=== PATIENT | male | born 1945 | race Caucasian/White ===

== ENCOUNTER 2016-12-29 17:10 | Emergency (ER) | payer MEDICARE, MEDICAID ==
[2016-12-29 19:39] VITALS: BP 136/91
== END 2016-12-29 19:39 | disposition short-term general hospital (02) ==
LOC: ED 17:10
DX: I21.4 Non-ST elevation (NSTEMI) myocardial infarction (principal); I10 Essential (primary) hypertension; Z87.891 Personal history of nicotine dependence
CPT/HCPCS: J1644; J7030

== ENCOUNTER → 2016-12-29 | Outpatient (CLI) | payer MEDICARE ==
[~2016-12-29] VITALS: Ht 167.6 cm; Wt 69.1 kg
[~2016-12-29] MED LIST: ZYRTEC10 M3 PO
[2016-12-29 16:17] VITALS: BP 155/107
[2016-12-29 16:41] LABS: BASO # 0.1 (0.02-0.10); EOS # 0.2 (0.04-0.40); EOS % 1.6 % (0.0-4.0); HEMATOCRIT 49.5 % (42.0-52.0); HEMOGLOBIN 15.9 g/dL (13.5-18.0); LYMPH# 3.3 (1.50-4.00); MEAN CELL VOLUME 85 fl (78-100); MEAN CORPUSCULAR HEMOGLOBIN 27 pg (27-31); MEAN CORPUSCULAR HGB CONC 32 g/dL (33-37); MONO # 1.1 (0.20-0.80); NEU # 6.8 (1.40-6.50); PLATELET COUNT 315 K/mm3 (130-400); RED BLOOD COUNT 5.83 M/mm3 (4.20-5.60); RED CELL DISTRIBUTION WIDTH 14.9 % (11.5-14.5); WHITE BLOOD COUNT 11.4 K/mm3 (4.8-10.8)
[2016-12-29 16:52] LABS: BUN/CREATININE RATIO 19.3 (6.0-26.0); CALCIUM 10.6 mg/dL (8.4-10.2); POTASSIUM 4.7 mmol/L (3.6-5.0); TOTAL BILIRUBIN 0.5 mg/dL (0.2-1.3); TOTAL PROTEIN 7.7 g/dL (6.3-8.2)
[2016-12-29 16:55] LABS: TROPONIN-I 1.16 ng/mL (0.00-0.06)
[2016-12-29 17:09] LABS: CKMB ISOENZYME 15.3 ng/mL (0.6-3.5)
--- NOTE | 2016-12-29 17:12 | NUR ---
[facility] visits withpatient re lab and EKGm results, plan to transfer to other facility for cardiac care
--- NOTE | 2016-12-29 17:16 | NUR ---
transfer to ED for continuum of care
[2016-12-29 17:39] LABS: D-DIMER 0.76 mg/L FEU (0.15-0.50)
[2016-12-29 18:08] LABS: PROTHROMBIN TIME 9.2 SECONDS (9.0-12.0)
== END ==
LOC: LAB 16:11
PROVIDERS: Family Medicine; Nurse Practitioner Family
DX: R07.89 Other chest pain (principal); M79.602 Pain in left arm

== ENCOUNTER 2017-01-21 06:34 | Emergency (ER) | payer MEDICARE, MEDICAID ==
[~2017-01-21] VITALS: Ht 165.1 cm; Wt 65.9 kg
[2017-01-21] MEDS ORDERED: GOOD SENSE ASPI81 M1 PO (06:54)
[2017-01-21] MEDS ORDERED: FLOMAX0.4 MG PO (06:55)
[2017-01-21] MEDS ORDERED: LOPRESSOR 225 MG/TAB PO (06:55)
[2017-01-21] MEDS ORDERED: LIPITOR 10M10 MG/TAB PO (06:55)
[2017-01-21] MEDS ORDERED: RT ALBUTEROL CC18 GM IH (06:56)
[2017-01-21] MEDS ORDERED: ACETAMINOPHEN325 M3 PO (06:56)
[2017-01-21] MEDS ORDERED: ONE-A-DAY MEN'S1 TAB PO (06:57)
[2017-01-21] MEDS ORDERED: ROXICODONE 55 MG/TAB PO (06:57)
[2017-01-21] MEDS ORDERED: GLUCOSAMINE CHO1 TAB PO (06:57)
[2017-01-21] MEDS ORDERED: ACID REDUCER 1150 MG PO (06:58)
[2017-01-21 07:47] LABS: URINE APPEARANCE CLOUDY; URINE BILIRUBIN NEGATIVE (NEGATIVE); URINE BLOOD 250 ery/uL (NEGATIVE); URINE COLOR YELLOW; URINE GLUCOSE NEGATIVE (NEGATIVE); URINE KETONE NEGATIVE (NEGATIVE); URINE LEUKOCYTE ESTERASE 2+ (NEGATIVE); URINE NITRATE NEGATIVE (NEGATIVE); URINE PROTEIN(semi-quant) 3+ mg/dL (NEGATIVE); URINE UROBILINOGEN NORMAL (NORMAL)
[2017-01-21 08:59] LABS: HEMATOCRIT 31.4 % (42.0-52.0); HEMOGLOBIN 9.6 g/dL (13.5-18.0); MEAN CELL VOLUME 89 fl (78-100); MEAN CORPUSCULAR HEMOGLOBIN 27 pg (27-31); MEAN CORPUSCULAR HGB CONC 31 g/dL (33-37); MEAN PLATELET VOLUME 8.4 fl (7.4-10.4); RED BLOOD COUNT 3.55 M/mm3 (4.20-5.60); RED CELL DISTRIBUTION WIDTH 17.1 % (11.5-14.5); WHITE BLOOD COUNT 18.5 K/mm3 (4.8-10.8)
[2017-01-21 09:11] LABS: PLATELET COUNT 819 K/mm3 (130-400)
[2017-01-21 09:14] LABS: LYMPHOCYTE 9 % (20-51); MONOCYTE 4 % (3-10); NEUTROPHILS 86 % (42-75)
[2017-01-21 09:39] LABS: BUN/CREATININE RATIO 13.7 (6.0-26.0); CALCIUM 9.1 mg/dL (8.4-10.2); POTASSIUM 4.4 mmol/L (3.6-5.0)
[2017-01-21 09:48] LABS: URINE APPEARANCE CLOUDY; URINE BILIRUBIN NEGATIVE (NEGATIVE); URINE COLOR YELLOW; URINE GLUCOSE NEGATIVE (NEGATIVE); URINE KETONE NEGATIVE (NEGATIVE); URINE NITRATE NEGATIVE (NEGATIVE); URINE PROTEIN(semi-quant) 3+ mg/dL (NEGATIVE); URINE UROBILINOGEN NORMAL (NORMAL)
[2017-01-21 09:49] LABS: URINE BLOOD 250 ery/uL (NEGATIVE); URINE LEUKOCYTE ESTERASE 2+ (NEGATIVE); URINE WBC >50 /hpf (0-3)
[2017-01-21] MEDS ORDERED: LEVAQUIN 750MG750 M1 PO (12:07)
[2017-01-21 12:14] VITALS: BP 134/72
== END 2017-01-21 12:23 | disposition home or self-care (01) ==
LOC: ED 06:34
PROVIDERS: Nurse Practitioner Family
DX: T83.098A Other mechanical complication of other urinary catheter, initial encounter (principal); N39.0 Urinary tract infection, site not specified; Z95.1 Presence of aortocoronary bypass graft; J90 Pleural effusion, not elsewhere classified; I25.2 Old myocardial infarction; I10 Essential (primary) hypertension; R33.9 Retention of urine, unspecified; Z87.891 Personal history of nicotine dependence
CPT/HCPCS: A4322; A4358; Q9967

== ENCOUNTER 2017-01-24 15:05 | Outpatient (RCR) | payer MEDICARE, MEDICAID ==
[~2017-01-24 15:05] MED LIST changes: +ACETAMINOPHEN325 M3 PO; +ACID REDUCER 1150 MG PO; +FLOMAX0.4 MG PO; +GLUCOSAMINE CHO1 TAB PO; +GOOD SENSE ASPI81 M1 PO; +LEVAQUIN 750MG750 M1 PO; +LIPITOR 10M10 MG/TAB PO; +LOPRESSOR 225 MG/TAB PO; +ONE-A-DAY MEN'S1 TAB PO; +ROXICODONE 55 MG/TAB PO; +RT ALBUTEROL CC18 GM IH
[2017-03-29] MEDS ORDERED: LOPRESSOR 225 MG/TAB PO (09:43)
[2017-03-29] MEDS ORDERED: ZITHROMAX Z PA250 MG PO (11:32)
[2017-03-29] MEDS ORDERED: MUCINEX 60600 MG/TA1 PO (11:32)
[2017-03-29] MEDS ORDERED: TESSALON PERLE100 M1 PO (11:32)
== END 2017-04-24 | disposition home or self-care (01) ==
LOC: CARDREHAB
DX: Z48.812 Encounter for surgical aftercare following surgery on the circulatory system (principal); Z95.1 Presence of aortocoronary bypass graft; I25.2 Old myocardial infarction

== ENCOUNTER → 2017-01-28 | Outpatient (CLI) | payer MEDICARE, MEDICAID ==
[2017-01-21 12:14] VITALS: BP 134/72
[2017-01-28 12:15] LABS: HEMATOCRIT 36.8 % (42.0-52.0); HEMOGLOBIN 11.3 g/dL (13.5-18.0); MEAN CELL VOLUME 86 fl (78-100); MEAN CORPUSCULAR HEMOGLOBIN 26 pg (27-31); MEAN CORPUSCULAR HGB CONC 31 g/dL (33-37); RED CELL DISTRIBUTION WIDTH 16.1 % (11.5-14.5); WHITE BLOOD COUNT 9.7 K/mm3 (4.8-10.8)
[2017-01-28 12:57] LABS: URINE APPEARANCE CLEAR; URINE BILIRUBIN NEGATIVE (NEGATIVE); URINE BLOOD NEGATIVE (NEGATIVE); URINE COLOR YELLOW; URINE GLUCOSE NEGATIVE (NEGATIVE); URINE KETONE NEGATIVE (NEGATIVE); URINE LEUKOCYTE ESTERASE 1+ (NEGATIVE); URINE NITRATE NEGATIVE (NEGATIVE); URINE PROTEIN(semi-quant) 1+ mg/dL (NEGATIVE); URINE UROBILINOGEN NORMAL (NORMAL)
[2017-01-28 12:58] LABS: URINE WBC 16-30 /hpf (0-3)
[2017-01-28 12:59] LABS: URINE MUCUS PRESENT (NOT PRESENT)
[2017-01-28 13:01] LABS: PLATELET COUNT 819 K/mm3 (130-400)
[2017-01-28 13:18] LABS: ALBUMIN 3.9 g/dL (3.5-5.0); BUN/CREATININE RATIO 17.2 (6.0-26.0); CALCIUM 10.4 mg/dL (8.4-10.2); POTASSIUM 4.7 mmol/L (3.6-5.0); TOTAL BILIRUBIN 0.5 mg/dL (0.2-1.3); TOTAL PROTEIN 7.4 g/dL (6.3-8.2)
[2017-01-28 13:19] LABS: LYMPHOCYTE 24 % (20-51); MONOCYTE 7 % (3-10); NEUTROPHILS 65 % (42-75)
== END ==
LOC: RAD 11:50
PROVIDERS: Physician Assistant
DX: R06.02 Shortness of breath (principal); N39.0 Urinary tract infection, site not specified; Z88.0 Allergy status to penicillin; Z95.1 Presence of aortocoronary bypass graft

== ENCOUNTER 2017-03-29 09:34 | Emergency (ER) | payer MEDICARE, MEDICAID ==
[~2017-03-29] VITALS: Ht 167.6 cm; Wt 65.5 kg
[2017-03-29] MEDS ORDERED: LOPRESSOR 225 MG/TAB PO (09:43)
[2017-03-29 10:39] LABS: STREP SCREEN NEGATIVE (NEGATIVE)
[2017-03-29 10:40] LABS: ALBUMIN 3.7 g/dL (3.5-5.0); BUN/CREATININE RATIO 10.8 (6.0-26.0); CALCIUM 8.7 mg/dL (8.4-10.2); HEMATOCRIT 49.6 % (42.0-52.0); HEMOGLOBIN 14.9 g/dL (13.5-18.0); MEAN CELL VOLUME 82 fl (78-100); MEAN CORPUSCULAR HEMOGLOBIN 25 pg (27-31); MEAN CORPUSCULAR HGB CONC 30 g/dL (33-37); MEAN PLATELET VOLUME 9.4 fl (7.4-10.4); PLATELET COUNT 225 K/mm3 (130-400); POTASSIUM 4.3 mmol/L (3.6-5.0); RED BLOOD COUNT 6.06 M/mm3 (4.20-5.60); RED CELL DISTRIBUTION WIDTH 15.4 % (11.5-14.5); TOTAL BILIRUBIN 0.2 mg/dL (0.2-1.3); TOTAL PROTEIN 7.2 g/dL (6.3-8.2); WHITE BLOOD COUNT 6.2 K/mm3 (4.8-10.8)
[2017-03-29 10:50] LABS: BAND 7 % (0-10); LYMPHOCYTE 23 % (20-51); MONOCYTE 9 % (3-10); NEUTROPHILS 61 % (42-75)
[2017-03-29] MEDS ORDERED: ZITHROMAX Z PA250 MG PO (11:32)
[2017-03-29] MEDS ORDERED: MUCINEX 60600 MG/TA1 PO (11:32)
[2017-03-29] MEDS ORDERED: TESSALON PERLE100 M1 PO (11:32)
[2017-03-29 11:55] VITALS: BP 123/76
== END 2017-03-29 11:40 | disposition home or self-care (01) ==
LOC: ED 09:34
PROVIDERS: Physician Assistant
DX: J20.9 Acute bronchitis, unspecified (principal); J02.9 Acute pharyngitis, unspecified; I25.10 Atherosclerotic heart disease of native coronary artery without angina pectoris; Z95.1 Presence of aortocoronary bypass graft; Z87.891 Personal history of nicotine dependence; I12.9 Hypertensive chronic kidney disease with stage 1 through stage 4 chronic kidney disease, or unspecified chronic kidney disease; N18.9 Chronic kidney disease, unspecified; J45.909 Unspecified asthma, uncomplicated; Z79.82 Long term (current) use of aspirin; Z88.0 Allergy status to penicillin; Z88.8 Allergy status to other drugs, medicaments and biological substances

== ENCOUNTER 2017-04-25 10:00 | Outpatient (RCR) | payer MEDICARE, MEDICAID ==
[~2017-04-25 10:00] MED LIST changes: +MUCINEX 60600 MG/TA1 PO; +TESSALON PERLE100 M1 PO; +ZITHROMAX Z PA250 MG PO
== END 2017-05-27 11:00 | disposition home or self-care (01) ==
LOC: CARDREHAB 10:00
DX: Z48.812 Encounter for surgical aftercare following surgery on the circulatory system (principal); Z95.1 Presence of aortocoronary bypass graft; I25.2 Old myocardial infarction

== ENCOUNTER → 2019-01-17 | Outpatient (CLI) | payer MEDICARE | LOC: LAB 11:21 | DX: R30.9 Painful micturition, unspecified (principal) ==